=== PATIENT | male | born 1940 | race Caucasian/White ===

== ENCOUNTER 2018-11-28 07:58 | Day surgery (SDC) | payer MEDICARE, MEDICAID ==
[2018-11-25 08:58] VITALS: BMI 23.0
[~2018-11-28 07:58] MED LIST: Carbachol 0.01% IO ONE; Chondroitin/Hyaluronate Opth Syringe KIT (0.55 ml-0.5 ml) IO ONE; Lactated Ringer's 1,000 ML IV ONE; Lidocaine 2% MPF (5 ml) Inj ONE; Lidocaine/Epinephrine 1% 1:100000 10 ML IJ ONE; Phenylephrine 2.5% Opht Soln OS SCH; Povidone Iodine Ophthalmic 5% Soln ONE; Tobramycin/Dexamethasone OPHT OINT ONE; Tropicamide 1% Opht SOLUTION OS SCH
[2018-11-28] MEDS ORDERED: Hyaluronidase Human, Recombi 150 U/ML VIAL ONE (08:20)
[2018-11-28] MEDS ORDERED: Albuterol 0.083% Inhal Sol (2.5 mg/3 mL) UD INH PRN (10:03)
[2018-11-28] MEDS ORDERED: Propofol 10 mg/ml Inj (20 ML) ONE (10:38)
[2018-11-28] MEDS ORDERED: Lidocaine Hydrochloride 5 ML INJ ONE (10:38)
[2018-11-28 12:36] VITALS: RESP 18
[2018-11-28 13:46] VITALS: BP 129/59; PULSE 64; TEMP 97.9; O2SAT 100
--- NOTE | 2018-11-29 04:23 | OP ---
PROCEDURE DATE: 11/28/2018 PREOPERATIVE DIAGNOSIS: Hypermature cataract, left eye. POSTOPERATIVE DIAGNOSIS: Hypermature cataract, left eye. PROCEDURE: Complex cataract surgery, left eye due to hypermaturity. SURGEON: Juma Alvarado MD TYPE OF ANESTHESIA: Retrobulbar block. COMPLICATIONS: None. ESTIMATED BLOOD LOSS: Zero. PROCEDURE: The patient was brought to the operating room and properly identified. Anesthesia staff administered intravenous sedation and retrobulbar block was given to the surgical eye. The patient was then prepped and draped in the usual sterile fashion. Attention was turned to the surgical eye. A lid speculum was placed into interpalpebral fissure. Sitting temporally, two paracentesis incisions were made. The anterior chamber was filled with viscoelastic and a triplanar clear corneal incision was made. Using a cystitome, anterior capsular leaflet was created. Utrata forceps were used to create a continuous curvilinear capsulorrhexis. Balanced salt solution on a cannula was used to hydrodissect and hydrodelineate the lens. The lens was then phacoemulsified with no complications. Automated irrigation and aspiration was used to remove the cortex. Viscoelastic was used to deepen the anterior chamber. The lens was placed in the capsular bag. Automated irrigation and aspiration was used to remove the viscoelastic. The anterior chamber was filled with Miochol. The wounds were hydrated with balanced salt solution. There was noted to be no leak at the end of the case and the lens was well positioned. The lid speculum was removed. The eye was given antibiotics and steroids and covered with a patch and shield. The patient was returned to the recovery room in stable condition. ADDENDUM: Due to hypermaturity VisionBlue was used to highlight the anterior capsule. The rest of the case is completed with no complication. Juma Alvarado MD
== END 2018-11-28 13:47 ==
LOC: C.SDS 07:58
PROVIDERS: ATTEND Ophthalmology
DX: H25.12 Age-related nuclear cataract, left eye (principal)
CPT/HCPCS: 66982; 82948; J2704; J3470